=== PATIENT | female | born 1945 | race Hispanic/Latino ===

== ENCOUNTER → 2020-03-19 | Day surgery (SDC) | payer MEDICARE, OTHER ==
[~2020-03-19] VITALS: Ht 149.9 cm; Wt 83.9 kg
[~2020-03-19] MED LIST: AMLODIPINE BESY10 MG PO; ASPIRIN325 MG PO; BIOTIN2500 MCG PO; LEVOTHYROXINE50 MCG PO; LIDOCAINE 1% W/EPINEPHRINE 20 ML VIAL ONE; LOSARTAN POTASS25 MG PO; NEXIUM40 MG PO
[2020-03-19 07:14] VITALS: BP 156/63
== END | disposition home or self-care (01) ==
LOC: CATH LAB 06:17
PROVIDERS: ATTEND Internal Medicine Interventional Cardiology
DX: I48.91 Unspecified atrial fibrillation (principal); I10 Essential (primary) hypertension; E03.9 Hypothyroidism, unspecified; Z88.6 Allergy status to analgesic agent; Z91.041 Radiographic dye allergy status; Z01.812 Encounter for preprocedural laboratory examination; Z11.59 Encounter for screening for other viral diseases; Z79.82 Long term (current) use of aspirin
CPT/HCPCS: 33285; C1764; U0002